=== PATIENT | male | born 1945 ===

== ENCOUNTER 2022-04-11 15:11 | Outpatient (CLI) | payer MEDICARE ==
--- NOTE | 2022-04-11 16:38 | XRAY Report ---
PROCEDURE: Knee 3 View RT INDICATIONS: RIGHT KNEE PAIN TECHNIQUE: 3 views of the right knee(s) were acquired. COMPARISON: None. FINDINGS: Bones: No fractures or dislocations. No suspicious bony lesions. There is moderate to severe media l as well as moderate patellofemoral and mild to moderate lateral compartment narrowing. Periarticula r osteophytes are present most notably laterally. Chondrocalcinosis is present. There is slight later al subluxation of the patella. Soft tissues: No joint effusion. No suspicious soft tissue calcifications. IMPRESSION: Tricompartmental arthritic changes above. Reviewed by: Mirian Gore MD on 04/11/2022 4:37 PM PDT Approved by: Mirian Gore MD on 04/11/2022 4:37 PM PDT Station ID: [id number]
== END 2022-04-11 15:12 | disposition home or self-care (01) ==
LOC: DI.S 15:11
PROVIDERS: ATTEND Physician Assistant
DX: M17.11 Unilateral primary osteoarthritis, right knee (principal)

== ENCOUNTER 2022-05-04 09:10 | Outpatient (CLI) | payer MEDICARE ==
[2022-05-04 10:10] VITALS: BP 126/72
--- NOTE | 2022-05-04 10:10 | SLEEP CARE CONSULTATION ---
Information from patient questionnaire entered by Jie Lau. I have reviewed and concur with the information entered by Jie Lau. This document represents the service I personally performed and the decisions made by me, Danna Sun ARNP. History of Present Illness Service Date and Time: 05/04/2022 0910 Reason for Visit: New patient, sleep apnea on CPAP therapy Chief Complaint: reports: Snoring Usual bedtime: 9-930PM Time it takes to fall asleep: 10MIN Snores at night: Yes Observed to quit breathing while asleep: No Sleeps alone due to snoring: No Number of times waking at night: 2 Reasons for waking at night: reports: Bathroom Toss, Turn, or Twitch while sleeping: No Recalls having dreams: Yes Feels refreshed in the morning: Yes Morning headache: No (UNLESS NO COFFEE) Sleepy or fatigued during the day: No Ever fallen asleep while driving: Yes (ONCE EVER) Takes day naps: No Dreams during day naps: No Prior sleep studies: Yes Year and Where: 10YRS AGO IN [facility] Additional HPI information: GIUSEPPE HERNANDEZ was previously diagnosed to have unknown, AHI unknown, sleep apnea-hypopnea syndrome and comes in today to establish care for CPAP therapy. - Parasomnia Symptoms Ever been unable to move upon waking from sleep: Yes Walks in sleep: No Talks in sleep: No Ever acted out dreams in sleep: No Ever felt weak in the knees when startled or emotional: No Bothered by creepy, crawly, restless sensations in legs: No Problems with memory or concentration: Yes CPAP Compliance Data - Data Reviewed with Patient Average duration of nightly device use: 6 hours 57 minutes Compliance rate %: 81 (153/180 days used) Current pressure setting (cmH2O): 4-20 (median 5.6, avg 8.5, max 9.9) Average residual AHI: 0.3 Central apnea: 0.1 Obstructive apnea: 0.0 Average large leak: 6.1 L/min Compliance data discussion: He has been using a ResMed Airsense 10 machine that he obtained from [employer]. He has been using a CPAP for over 10 years but he does not remember actually taking a sleep study. He is using a nasal cushion ResMed Mirage FX. He just had his machine replaced about 1 month or so ago because his other machine updated in 08/2019 was malfunctioning. He has been having lot of mask issues with leaking and ill fitting mask cushion that he finally got fixed in last few days. Subjective Missed days of use due to: reports: mask issues Patient concerns: denies: aerophagia, mask discomfort, air blowing in eyes, mask leak noise, condensation in mask/hose, nasal congestion, dry mouth, nose, throa t, epistaxis Observed to snore while using device: No Current pressure setting perceived as: comfortable On therapy, patient: reports: sleeping better, awakening more refreshed, being more awake and alert during the day, more rested overall. denies: drowsiness while driving Initial [place] Sleepiness Scale score: 5 (05/04/2022) Past Medical History Past Medical History: reports: Arthritis Social History The patient's occupation is a RE. Patient is and lives in [place]. Have you smoked in the past 12 months: No Alcohol use: Yes Alcohol amount and frequency: A BEER COUPLE X WEEK Caffeine use: Yes Caffeine amount and frequency: 2-3 CUPS EVERY MORNING Family History Family history of sleep disordered breathing: Yes Family Hx Sleep Apnea: Mother: Snoring Allergies and Home Medications Known drug allergies: No Drug allergies reviewed: Yes (NKDA) Home medication list reviewed: Yes (no daily medications; tylenol or ibuprofen prn pain) Review of Systems Urinary: reports: frequency, urgency Musculoskeletal: reports: joint pain (KNEE ) Physical Exam Vital signs obtained and entered by: JIE Heard MA Blood Pressure: 126/72 (LEFT ARM) Cuff size: regular Heart Rate: 55 O2 Saturation: 95 Height: 5 ft 10.25 in Weight: 191 lb 3.2 oz Body Mass Index: 27.2 BMI Classification: Overweight Neck circumference: 17 Mouth and throat: narrow oropharynx Soft palate: long Hard palate: normal Uvula: normal Uvula visualization: 50% Mallampati Class II Tongue: enlarged in size with teeth sweeney on lateral edges Tonsils: small Heart: regular rate and rhythm Lungs: clear bilaterally Impression and Plan 1. Obstructive Sleep Apnea-Hypopnea Syndrome, unknown, with good treatment compliance and good apnea control. On CPAP therapy, the patient has better sleep quality and is more rested overall. The patients pressure will be changed to autoCPAP 6-12 cmH20 to reflect pressure being used. Patient advised to contact me if pressure change is uncomfortable so that it can be adjusted. Goals for apnea control discussed. Patient states he was seen in a place for sleep apnea in [place], [place] and was given a CPAP to use but he does not remember ever doing a sleep study. I will order a sleep study to verify diagnosis and severity. We can touch base with [facility] where he has been getting his supplies to see if they have anything on file first but I suspect we will have to do a study. I will follow up with him here after the study. Patient's apnea severity and rationale for treatment to reduce apnea, improve sleep quality and reduce cardiovascular and cerebrovascular events was reviewed. * PSG to verify diagnosis and severity if not able to get copy of sleep study * Change auto CPAP pressure to 6-12 cmH2O * Notify me if snoring with mask or feeling that the pressure is too much or too little * Call this office if any problems using CPAP * Return for follow up in after sleep study, or sooner if concerns arise Counseling Topics: Spare mask, Weight loss health impact Visit Type: In Office Time Spent with Patient (minutes): 35 Provider Statement: I spent 100% of the Face to Face Visit with the patient with greater than 50% spent counseling the patient and coordination of care.
== END 2022-05-04 09:11 | disposition home or self-care (01) ==
LOC: SC 09:10
PROVIDERS: ATTEND Nurse Practitioner Family
DX: G47.33 Obstructive sleep apnea (adult) (pediatric) (principal)
CPT/HCPCS: 99203; G0463; 99212

== ENCOUNTER 2022-05-29 09:50 | Outpatient (CLI) | payer MEDICARE | END 2022-05-29 09:51 | disposition home or self-care (01) | LOC: SC 09:50 | PROVIDERS: ATTEND Nurse Practitioner Family | DX: G47.33 Obstructive sleep apnea (adult) (pediatric) (principal) ==

== ENCOUNTER 2022-05-30 08:10 | Outpatient (CLI) | payer MEDICARE | END 2022-05-30 08:11 | disposition home or self-care (01) | LOC: SC 08:10 | PROVIDERS: ATTEND Nurse Practitioner Family | DX: G47.33 Obstructive sleep apnea (adult) (pediatric) (principal); R09.02 Hypoxemia | CPT/HCPCS: G0399 ×2; 95806 ==

== ENCOUNTER 2024-01-07 16:19 | Outpatient (CLI) | payer MEDICARE ==
--- NOTE | 2024-01-07 16:54 | XRAY Report ---
PROCEDURE: Chest 2V INDICATIONS: CHRONIC COUGH TECHNIQUE: 2 views of the chest were acquired. COMPARISON: None. FINDINGS: Surgical changes and devices: Tiny foreign body projects over the lower cervical spine on the left. Lungs and pleura: No pleural effusions or pneumothorax. Lungs are clear. Mediastinum: Mediastinal contours appear normal. Heart size is normal. Bones and chest wall: No suspicious bony lesions. Overlying soft tissues appear unremarkable. IMPRESSION: No acute cardiopulmonary process. Reviewed by: Scott Sharp MD on 01/07/2024 4:53 PM PDT Approved by: Scott Sharp MD on 01/07/2024 4:53 PM PDT Station ID: [id number]
== END 2024-01-07 16:20 | disposition home or self-care (01) ==
LOC: DI 16:19
PROVIDERS: ATTEND Internal Medicine
DX: R05.3 Chronic cough (principal)